=== PATIENT | male | born 1945 | race Caucasian/White ===

== ENCOUNTER → 2016-04-29 | Outpatient (CLI) | payer BC ==
[~2016-04-29] MED LIST: ADVIN25/60 INH; ADVIN50050 INH; AMLO-110 PO; Budesonide PO; CYAN10004 PO; DABI150C PO; FERR1TAB24 PO; FINA5TAB PO; FLV1 PO; GLC/500 PO; LEVA1.25 INH; LEVAAER2 INH; LOSA1TAB38 PO; LPR50X PO; METH2.5T PO; METO50TA16 PO; METO50TA7 PO; PANT40TA PO; POTA20TA16 PO; PROBCAP3 PO; SIMV20TA2 PO
[2016-04-29 09:40] LABS: BASO % 0.6 %; BASO ABS # 0.05 K/uL (0-0.2); COMPLETE YES; EOS % 7.5 %; HEMATOCRIT 37.4 % (42-52); IG% 0.2 %; LYMPH % 20.4 %; LYMPH ABS # 1.68 K/uL (1.2-3.4); MEAN CELL VOLUME 79.4 fL (80-100); MEAN CORPUSCULAR HEMOGLOBIN 24.2 pg (25-34); MEAN CORPUSCULAR HGB CONC 30.5 g/dl (32-36); MEAN PLATELET VOLUME 9.4 fL (7.4-10.4); MONO % 9.6 %; NEUT % 61.7 %; PLATELET COUNT 362 K/uL (130-400); RED BLOOD COUNT 4.71 M/uL (4.7-6.1); WHITE BLOOD COUNT 8.22 K/uL (4.8-10.8)
[2016-04-29 10:16] LABS: ESTIMATED AVERAGE GLUCOSE 108 mg/dl; HA1C FLAG Normal (Normal)
[2016-04-29 10:26] LABS: ALB/GLOB RATIO 0.8 (0.9-2); ALT/SGPT 13 U/L (12-78); BLOOD UREA NITROGEN 11 mg/dl (7-18); BUN/CREATININE RATIO 13.3 (10-20); CALCIUM 8.7 mg/dl (8.5-10.1); CARBON DIOXIDE 30 mmol/L (21-32); CHLORIDE 103 mmol/L (98-107); CHOLESTEROL 104 mg/dl (0-200); CREATININE 0.81 mg/dl (0.60-1.40); GLUCOSE 101 mg/dl (70-99); PHOSPHORUS 2.9 mg/dl (2.5-4.9); POTASSIUM 3.9 mmol/L (3.5-5.1); SODIUM 139 mmol/L (136-145); TRIGLYCERIDES 68 mg/dl (0-150); URIC ACID 4.5 mg/dl (2.6-7.2); VERY LOW DENSITY LIPOPROT CALC 14 mg/dl
[2016-04-29 10:35] LABS: ALKALINE PHOSPHATASE 56 U/L (45-117); AST/SGOT 5 U/L (15-37); CHOLESTEROL/HDL RATIO 1.9; HDL CHOLESTEROL 56 mg/dl; LDL CHOLESTEROL CALCULATED 34 mg/dl; TOTAL IRON BINDING CAPACITY 338 mcg/dl (250-450)
[2016-04-29 14:21] LABS: LYME DISEASE AB IGG NEG (NEG); LYME DISEASE AB IGM NEG (NEG)
--- NOTE | 2016-05-05 13:32 | CODING QUERY MEDICAL NECESSITY ---
SUPPORTING DIAGNOSIS NEEDED A supporting diagnosis is required for the test/procedure performed on this patient in order for us to be reimbursed by the patient's insurance. Please provide a supporting diagnosis for the following test/procedure listed below next to the test name along with your signature. *If there is no additional diagnosis for this patient that would support the following test/procedure please document that below next to the test/procedure. Test(s)/Procedure(s) that require a supporting diagnosis: DOS 04/29 * Vitamin B12 DIAGNOSIS: Provider Signature: Date: Thank you Susan [facility] Information Management Once completed, please kindly fax back to [phone] For questions please call [phone]
== END | disposition home or self-care (01) ==
LOC: C.LAB 08:45
PROVIDERS: ATTEND Family Medicine
DX: E11.9 Type 2 diabetes mellitus without complications (principal); R53.83 Other fatigue; D64.9 Anemia, unspecified

== ENCOUNTER → 2016-05-02 | Outpatient (CLI) | payer BC ==
--- NOTE | 2016-05-02 10:42 | DIAGNOSTIC IMAGING REPORT ---
CHEST 2 VIEWS ROUTINE CLINICAL HISTORY: Cough. COMPARISON STUDY: Chest radiograph September 18, 2008. FINDINGS: Lung volumes are normal. There is no pneumothorax or pleural effusion. Moderate cardiomegaly is unchanged. There is no evidence of pulmonary edema. No consolidation is identified. The appearance of the chest is unchanged. IMPRESSION: 1. No acute findings. 2. Stable moderate cardiomegaly. Electronically signed by: Derrick Chavarria M.D. 05/02/2016 10:40 AM Dictated Date/Time: 05/02/2016 10:38 AM
== END | disposition home or self-care (01) ==
LOC: C.RAD 10:01
PROVIDERS: ATTEND Internal Medicine Gastroenterology
DX: K50.00 Crohn's disease of small intestine without complications (principal); I51.7 Cardiomegaly

== ENCOUNTER → 2016-06-24 | Outpatient (CLI) | payer BC ==
[~2016-06-24] MED LIST changes: -FLV1 PO; -LOSA1TAB38 PO; -METH2.5T PO; -METO50TA16 PO; -PANT40TA PO; -POTA20TA16 PO
== END | disposition home or self-care (01) ==
LOC: C.MAMM 15:31
PROVIDERS: ATTEND Internal Medicine Gastroenterology
DX: K50.00 Crohn's disease of small intestine without complications (principal); M85.851 Other specified disorders of bone density and structure, right thigh; M85.852 Other specified disorders of bone density and structure, left thigh

== ENCOUNTER → 2016-08-05 | Outpatient (CLI) | payer BC ==
[2016-08-05 09:45] LABS: BASO % 0.4 %; BASO ABS # 0.03 K/uL (0-0.2); COMPLETE YES; EOS % 4.2 %; HEMATOCRIT 41.6 % (42-52); IG% 0.1 %; LYMPH % 23.5 %; LYMPH ABS # 1.61 K/uL (1.2-3.4); MEAN CELL VOLUME 81.3 fL (80-100); MEAN CORPUSCULAR HEMOGLOBIN 25.6 pg (25-34); MEAN CORPUSCULAR HGB CONC 31.5 g/dl (32-36); MEAN PLATELET VOLUME 9.7 fL (7.4-10.4); MONO % 9.8 %; PLATELET COUNT 293 K/uL (130-400); RED BLOOD COUNT 5.12 M/uL (4.7-6.1); WHITE BLOOD COUNT 6.86 K/uL (4.8-10.8)
[2016-08-05 10:12] LABS: ESTIMATED AVERAGE GLUCOSE 111 mg/dl; HA1C FLAG Normal (Normal)
[2016-08-05 10:24] LABS: ALB/GLOB RATIO 0.9 (0.9-2); ALKALINE PHOSPHATASE 53 U/L (45-117); ALT/SGPT 18 U/L (12-78); AST/SGOT 7 U/L (15-37); BLOOD UREA NITROGEN 9 mg/dl (7-18); CALCIUM 8.8 mg/dl (8.5-10.1); CARBON DIOXIDE 35 mmol/L (21-32); CHLORIDE 105 mmol/L (98-107); CHOLESTEROL 164 mg/dl (0-200); CHOLESTEROL/HDL RATIO 2.6; CREATININE 0.73 mg/dl (0.60-1.40); GLUCOSE 99 mg/dl (70-99); HDL CHOLESTEROL 64 mg/dl; LDL CHOLESTEROL CALCULATED 87 mg/dl; PHOSPHORUS 2.7 mg/dl (2.5-4.9); POTASSIUM 3.8 mmol/L (3.5-5.1); SODIUM 142 mmol/L (136-145); TRIGLYCERIDES 66 mg/dl (0-150); VERY LOW DENSITY LIPOPROT CALC 13 mg/dl
[2016-08-05 10:33] LABS: TOTAL IRON BINDING CAPACITY 335 mcg/dl (250-450); URIC ACID 6.1 mg/dl (2.6-7.2)
[2016-08-06 10:12] LABS: C-REACTIVE PROT HIGHSEN 10.9 MG/L
--- NOTE | 2016-08-11 13:34 | CODING QUERY MEDICAL NECESSITY ---
SUPPORTING DIAGNOSIS NEEDED A supporting diagnosis is required for the test/procedure performed on this patient in order for us to be reimbursed by the patient's insurance. Please provide a supporting diagnosis for the following test/procedure listed below next to the test name along with your signature. *If there is no additional diagnosis for this patient that would support the following test/procedure please document that below next to the test/procedure. Test(s)/Procedure(s) that require a supporting diagnosis: DOS 08/05 * Vitamin D DIAGNOSIS: * Vitamin B12 DIAGNOSIS: * CRP DIAGNOSIS: Provider Signature: Date: Thank you Susan [facility] Information Management Once completed, please kindly fax back to [phone] For questions please call [phone]
== END | disposition home or self-care (01) ==
LOC: C.LAB 08:12
PROVIDERS: ATTEND Family Medicine
DX: E11.9 Type 2 diabetes mellitus without complications (principal); R53.83 Other fatigue

== ENCOUNTER → 2016-08-06 | Outpatient (CLI) | payer BC ==
[2016-08-06 10:01] LABS: ESTIMATED AVERAGE GLUCOSE 111 mg/dl; HA1C FLAG Normal (Normal)
[2016-08-06 10:30] LABS: BLOOD UREA NITROGEN 9 mg/dl (7-18); CARBON DIOXIDE 33 mmol/L (21-32); CHLORIDE 103 mmol/L (98-107); GLUCOSE 94 mg/dl (70-99); POTASSIUM 3.5 mmol/L (3.5-5.1); SODIUM 142 mmol/L (136-145)
[2016-08-06 10:34] LABS: ALB/GLOB RATIO 0.9 (0.9-2); ALKALINE PHOSPHATASE 55 U/L (45-117); ALT/SGPT 16 U/L (12-78); AST/SGOT 8 U/L (15-37)
== END | disposition home or self-care (01) ==
LOC: C.LAB 08:42
PROVIDERS: ATTEND Family Medicine
DX: E11.9 Type 2 diabetes mellitus without complications (principal)

== ENCOUNTER → 2016-11-11 | Outpatient (CLI) | payer BC ==
[~2016-11-11] MED LIST changes: -SIMV20TA2 PO
[2016-11-11 18:00] LABS: BASO % 0.9 %; BASO ABS # 0.07 K/uL (0-0.2); COMPLETE YES; EOS % 4.9 %; HEMATOCRIT 40.4 % (42-52); IG% 0.4 %; LYMPH % 21.8 %; MEAN CELL VOLUME 84.3 fL (80-100); MEAN CORPUSCULAR HEMOGLOBIN 26.9 pg (25-34); MEAN CORPUSCULAR HGB CONC 31.9 g/dl (32-36); MEAN PLATELET VOLUME 9.9 fL (7.4-10.4); MONO % 9.2 %; NEUT % 62.8 %; PLATELET COUNT 339 K/uL (130-400); RED BLOOD COUNT 4.79 M/uL (4.7-6.1)
[2016-11-11 18:28] LABS: ALT/SGPT 15 U/L (12-78); AST/SGOT 10 U/L (15-37); BLOOD UREA NITROGEN 10 mg/dl (7-18); BUN/CREATININE RATIO 10.5 (10-20); CALCIUM 9.7 mg/dl (8.5-10.1); CARBON DIOXIDE 30 mmol/L (21-32); CHLORIDE 102 mmol/L (98-107); CREATININE 0.92 mg/dl (0.60-1.40); GLUCOSE 121 mg/dl (70-99); POTASSIUM 3.3 mmol/L (3.5-5.1); SODIUM 138 mmol/L (136-145)
[2016-11-11 18:32] LABS: ALB/GLOB RATIO 0.9 (0.9-2); ALKALINE PHOSPHATASE 51 U/L (45-117); TOTAL IRON BINDING CAPACITY 305 mcg/dl (250-450)
[2016-11-12 08:26] LABS: ESTIMATED AVERAGE GLUCOSE 114 mg/dl; HA1C FLAG Normal (Normal)
--- NOTE | 2016-11-18 07:25 | CODING QUERY MEDICAL NECESSITY ---
SUPPORTING DIAGNOSIS NEEDED Dr. Mills, A supporting diagnosis is required for the test/procedure performed on this patient in order for us to be reimbursed by the patient's insurance. Please provide a supporting diagnosis for the following test/procedure listed below next to the test name along with your signature. *If there is no additional diagnosis for this patient that would support the following test/procedure please document that below next to the test/procedure. Test(s)/Procedure(s) that require a supporting diagnosis: * 22573 GLYCATED HEMOGLOBIN DIAGNOSIS: DATE OF SERVICE: 11/11/16 Provider Signature: Date: Thank you Loki Enrique [facility] Information Management Once completed, please kindly fax back to [phone] For questions please call [phone]
== END | disposition home or self-care (01) ==
LOC: C.LAB 16:32
PROVIDERS: ATTEND Family Medicine
DX: D64.9 Anemia, unspecified (principal); R73.09 Other abnormal glucose

== ENCOUNTER → 2016-12-08 | Outpatient (CLI) | payer BC ==
[~2016-12-08] MED LIST changes: -ADVIN50050 INH; -Budesonide PO; -METO50TA7 PO
--- NOTE | 2016-12-08 16:49 | DIAGNOSTIC IMAGING REPORT ---
CHEST 2 VIEWS ROUTINE HISTORY: Left-sided RIB PAIN COMPARISON: Chest 04/22/2016. FINDINGS: The heart remains borderline enlarged. The lungs are clear. No pleural effusions. No pneumothorax. Stable mild thickening of the left lateral sixth and seventh ribs consistent with old, healed fractures. No acute fractures identified. IMPRESSION: No significant change compared to the prior study. No acute process. Electronically signed by: Braulio Kingston M.D. 12/08/2016 4:47 PM Dictated Date/Time: 12/08/2016 4:45 PM
== END | disposition home or self-care (01) ==
LOC: C.RAD 16:24
PROVIDERS: ATTEND Family Medicine
DX: R07.81 Pleurodynia (principal)

== ENCOUNTER → 2016-12-29 | Outpatient (CLI) | payer BC ==
[~2016-12-29] MED LIST changes: +PERFLUTREN LIPID MICROSPHERE (DEFINITY) IV ONE
--- NOTE | 2016-12-29 15:00 | ECHOCARDIOGRAM REPORT ---
*NOTICE TO RECEIVING [employer] This information is strictly Confidential and protected under [place] law. [place] law prohibits you from making any further disclosure of this information unless further disclosure is expressly permitted by the written consent of the person to whom it pertains or is authorized by law. A general authorization for the release of medical or other information is not sufficient for this purpose. Hospital accepts no responsibility if the information is made available to any other person, INCLUDING THE PATIENT. Interpretation Summary * Name: JENNIFER HANNA Study Date: 12/29/2016 12:44 PM BP: 167/81 mmHg * Patient Location: [facility] HR: 69 * : 1945 (M/d/yyyy) Gender: Male Height: 70 in * Age: 71 yrs Ethnicity: [place] Weight: 230 lb * Ordering Physician: Noah Mills * Referring Physician: Noah Mills * Performed By: Eleanor Montiel * * Reason For Study: EDEMA * BSA: 2.2 m2 * -- Conclusions -- * The study was technically limited. * There is mild concentric left ventricular hypertrophy. * The right ventricular systolic function is normal as assessed by tricuspid annular plane systolic excursion (TAPSE) (normal >1.5 cm). * Right ventricular systolic pressure is elevated at 30-40mmHg. * Left ventricular systolic function is normal. Procedure Details * A complete two-dimensional transthoracic echocardiogram was performed (2D, M-mode, Doppler and color flow Doppler). * The study was technically difficult. * There were technical limitations due to patient'sbody habitus * A contrast injection of Definity was performed to improve assessment of LV function. * Contrast was injected into an intravenous site in the right arm. * One vial of Definity ultrasound contrast was diluted in normal saline to a total volume of 10 ml. A total of '3' ml of solution was administered during imaging. * Lot # [id number] of Definity utilized for procedure. * Expiration date 02/04. * The attending nurse who injected the contrast agent was LENARD TRAN RN. * The study was technically limited. Left Ventricle * The left ventricle is grossly normal size. * There is mild concentric left ventricular hypertrophy. * Ejection Fraction = 55-60%. * Left ventricular systolic function is normal. * The left ventricular wall motion is normal. Right Ventricle * The right ventricle is grossly normal size. * The right ventricular systolic function is normal as assessed by tricuspid annular plane systolic excursion (TAPSE) (normal >1.5 cm). Atria * The left atrial size is normal. * Right atrial size is normal. Mitral Valve * The mitral valve is grossly normal. * Significant mitral regurgitation is absent. Tricuspid Valve * The tricuspid valve is not well visualized, but is grossly normal. * There is mild tricuspid regurgitation. * Right ventricular systolic pressure is elevated at 30-40mmHg. Aortic Valve * The aortic valve is not well visualized. * No hemodynamically significant valvular aortic stenosis. * There is no significant aortic regurgitation. Pericardium/Pleural * There is no pericardial effusion. MMode 2D Measurements and Calculations IVSd 1.5 cm IVSs 2.1 cm LVIDd 5.1 cm LVIDs 3.5 cm LVPWd 1.2 cm LVPWs 1.9 cm IVS/LVPW 1.2 FS 30.7 % EDV(Teich) 124.0 ml ESV(Teich) 52.2 ml EF(Teich) 57.9 % EDV(cubed) 132.9 ml ESV(cubed) 44.3 ml EF(cubed) 66.7 % % IVS thick 35.2 % % LVPW thick 50.6 % LV mass(C)d 297.6 grams LV mass(C)dI 134.3 grams/m\S\2 LV mass(C)s 313.0 grams LV mass(C)sI 141.3 grams/m\S\2 SV(Teich) 71.8 ml SI(Teich) 32.4 ml/m\S\2 SV(cubed) 88.6 ml SI(cubed) 40.0 ml/m\S\2 asc Aorta Diam 3.5 cm LVAd ap4 35.3 cm\S\2 LVLd ap4 7.8 cm EDV(MOD-sp4) 132.2 ml EDV(sp4-el) 136.3 ml LVAs ap4 21.7 cm\S\2 LVLs ap4 6.8 cm ESV(MOD-sp4) 56.8 ml ESV(sp4-el) 59.2 ml EF(MOD-sp4) 57.1 % EF(sp4-el) 56.5 % LVAd ap2 36.3 cm\S\2 LVLd ap2 8.1 cm EDV(MOD-sp2) 132.0 ml EDV(sp2-el) 138.2 ml LVAs ap2 22.2 cm\S\2 LVLs ap2 7.4 cm ESV(MOD-sp2) 54.2 ml ESV(sp2-el) 56.8 ml EF(MOD-sp2) 59.0 % EF(sp2-el) 58.9 % LVLd %diff 4.0 % EDV(MOD-bp) 135.2 ml LVLs %diff 7.9 % ESV(MOD-bp) 57.5 ml EF(MOD-bp) 57.5 % SV(MOD-sp4) 75.4 ml SI(MOD-sp4) 34.1 ml/m\S\2 SV(MOD-sp2) 77.9 ml SI(MOD-sp2) 35.2 ml/m\S\2 SV(MOD-bp) 77.7 ml SI(MOD-bp) 35.1 ml/m\S\2 SV(sp4-el) 77.1 ml SI(sp4-el) 34.8 ml/m\S\2 SV(sp2-el) 81.4 ml SI(sp2-el) 36.8 ml/m\S\2 Doppler Measurements and Calculations MV E max kamilla 134.8 cm/sec MV dec time 0.20 sec Ao V2 max 141.2 cm/sec Ao max PG 8.0 mmHg Ao max PG (full) 3.1 mmHg LV V1 max PG 4.9 mmHg LV V1 max 110.8 cm/sec MR max kamilla 462.0 cm/sec MR max PG 85.4 mmHg PA V2 max 58.2 cm/sec PA max PG 1.4 mmHg TR max kamilla 273.5 cm/sec
--- NOTE | 2017-01-08 11:24 | CODING QUERY MEDICAL NECESSITY ---
SUPPORTING DIAGNOSIS NEEDED A supporting diagnosis is required for the test/procedure performed on this patient in order for us to be reimbursed by the patient's insurance. Please provide a supporting diagnosis for the following test/procedure listed below next to the test name along with your signature. *If there is no additional diagnosis for this patient that would support the following test/procedure please document that below next to the test/procedure. Test(s)/Procedure(s) that require a supporting diagnosis: * ECHO COMPLETE DIAGNOSIS: Provider Signature: Date: Thank you Jayashree [place] [employer] Information Management Once completed, please kindly fax back to [phone] For questions please call [phone]
== END | disposition home or self-care (01) ==
LOC: C.CPL 12:37
PROVIDERS: ATTEND Family Medicine
DX: R60.9 Edema, unspecified (principal)

== ENCOUNTER → 2017-02-26 | Outpatient (CLI) | payer BC ==
[~2017-02-26] MED LIST changes: -PERFLUTREN LIPID MICROSPHERE (DEFINITY) IV ONE
[2017-02-26 10:07] LABS: BASO % 0.8 %; BASO ABS # 0.07 K/uL (0-0.2); COMPLETE YES; EOS % 5.7 %; HEMATOCRIT 37.4 % (42-52); IG% 0.5 %; LYMPH % 19.4 %; LYMPH ABS # 1.66 K/uL (1.2-3.4); MEAN CELL VOLUME 85.6 fL (80-100); MEAN CORPUSCULAR HEMOGLOBIN 26.5 pg (25-34); MEAN PLATELET VOLUME 9.1 fL (7.4-10.4); NEUT % 64.6 %; PLATELET COUNT 344 K/uL (130-400); RED BLOOD COUNT 4.37 M/uL (4.7-6.1); WHITE BLOOD COUNT 8.57 K/uL (4.8-10.8)
[2017-02-26 10:16] LABS: ESTIMATED AVERAGE GLUCOSE 114 mg/dl; HA1C FLAG Normal (Normal)
[2017-02-26 10:45] LABS: ALB/GLOB RATIO 0.8 (0.9-2); ALT/SGPT 15 U/L (12-78); AST/SGOT 11 U/L (15-37); BLOOD UREA NITROGEN 10 mg/dl (7-18); BUN/CREATININE RATIO 10.9 (10-20); CALCIUM 9.3 mg/dl (8.5-10.1); CARBON DIOXIDE 27 mmol/L (21-32); CHLORIDE 105 mmol/L (98-107); CHOLESTEROL 156 mg/dl (0-200); CHOLESTEROL/HDL RATIO 2.8; CREATININE 0.93 mg/dl (0.60-1.40); GLUCOSE 105 mg/dl (70-99); HDL CHOLESTEROL 56 mg/dl; LDL CHOLESTEROL CALCULATED 80 mg/dl; POTASSIUM 4.5 mmol/L (3.5-5.1); SODIUM 138 mmol/L (136-145); TRIGLYCERIDES 101 mg/dl (0-150); VERY LOW DENSITY LIPOPROT CALC 20 mg/dl
[2017-02-26 10:58] LABS: ALKALINE PHOSPHATASE 52 U/L (45-117); TOTAL IRON BINDING CAPACITY 302 mcg/dl (250-450); URIC ACID 6.9 mg/dl (2.6-7.2)
== END | disposition home or self-care (01) ==
LOC: C.LAB 09:15
PROVIDERS: ATTEND Family Medicine
DX: R73.09 Other abnormal glucose (principal); E55.9 Vitamin D deficiency, unspecified; D51.9 Vitamin B12 deficiency anemia, unspecified; E78.9 Disorder of lipoprotein metabolism, unspecified; R53.83 Other fatigue

== ENCOUNTER → 2017-07-15 | Outpatient (CLI) | payer BC ==
[2017-07-15 09:35] LABS: BASO % 0.9 %; BASO ABS # 0.07 K/uL (0-0.2); EOS % 5.8 %; EOS ABS # 0.45 K/uL (0-0.5); HEMATOCRIT 38.4 % (42-52); HEMOGLOBIN 12.4 g/dL (14.0-18.0); IG# 0.05 K/uL (0.00-0.02); LYMPH % 18.5 %; LYMPH ABS # 1.44 K/uL (1.2-3.4); MEAN CELL VOLUME 88.9 fL (80-100); MEAN CORPUSCULAR HEMOGLOBIN 28.7 pg (25-34); MEAN CORPUSCULAR HGB CONC 32.3 g/dl (32-36); MEAN PLATELET VOLUME 10.1 fL (7.4-10.4); MONO % 9.6 %; MONO ABS # 0.75 K/uL (0.11-0.59); NEUT % 64.6 %; NEUT ABS # 5.04 K/uL (1.4-6.5); PLATELET COUNT 352 K/uL (130-400); RED CELL DISTRIBUTION WIDTH CV 15.8 % (11.5-14.5); RED CELL DISTRIBUTION WIDTH SD 51.3 fL (36.4-46.3)
[2017-07-15 10:14] LABS: ALBUMIN 3.3 gm/dl (3.4-5.0); ALT/SGPT 16 U/L (12-78); AST/SGOT 10 U/L (15-37); BLOOD UREA NITROGEN 15 mg/dl (7-18); CALCIUM 8.9 mg/dl (8.5-10.1); CARBON DIOXIDE 28 mmol/L (21-32); CHOLESTEROL 167 mg/dl (0-200); CREATININE 1.01 mg/dl (0.60-1.40); GLUCOSE 103 mg/dl (70-99); HEMOGLOBIN A1C 5.4 % (4.5-5.6); POTASSIUM 4.6 mmol/L (3.5-5.1); SODIUM 135 mmol/L (136-145); URIC ACID 6.7 mg/dl (2.6-7.2)
[2017-07-15 10:23] LABS: ALKALINE PHOSPHATASE 49 U/L (45-117); LDL CHOLESTEROL CALCULATED 97 mg/dl; TOTAL PROTEIN 6.9 gm/dl (6.4-8.2); TRANSFERRIN 251 mg/dl (200-360)
== END | disposition home or self-care (01) ==
LOC: C.LAB 08:12
PROVIDERS: ATTEND Family Medicine
DX: E88.81 Metabolic syndrome and other insulin resistance (principal); E55.9 Vitamin D deficiency, unspecified; D51.9 Vitamin B12 deficiency anemia, unspecified; E78.9 Disorder of lipoprotein metabolism, unspecified; R53.83 Other fatigue

== ENCOUNTER → 2017-08-24 | Outpatient (CLI) | payer BC ==
[~2017-08-24] MED LIST changes: -PROBCAP3 PO
== END | disposition home or self-care (01) ==
LOC: C.MAMM 08:25
PROVIDERS: ATTEND Family Medicine
DX: Z79.52 Long term (current) use of systemic steroids (principal)